=== PATIENT | male | born 1945 | race Caucasian/White ===

== ENCOUNTER 2022-03-04 20:50 | Emergency (ER) | payer OTHER ==
[2022-03-04] MEDS ORDERED: NEO/BAC/POLY/HC OPTH OINT ONE (22:37)
--- NOTE | 2022-03-04 22:48 | ER ---
Nurse's Notes [facility] Name: Mann Lobo Age: 77 yrs Sex: Male : 1945 Arrival Date: 03/04/2022 Time: 20:53 Bed 3 Private MD: Diagnosis: Other acute conjunctivitis Presentation: 03/04 21:09 Chief complaint: Patient states: 0800 this morning I woke up and "had a film over my ld1 right eye." Pt reports trouble seeing in right eye, burning pain.". Coronavirus screen: At this time, the client does not indicate any symptoms associated with coronavirus-19. Ebola Screen: No symptoms or risks identified at this time. Initial Sepsis Screen: Does the patient meet any 2 criteria? No. Patient's initial sepsis screen is negative. Does the patient have a suspected source of infection? No. Patient's initial sepsis screen is negative. Risk Assessment: Do you want to hurt yourself or someone else? Patient reports no desire to harm self or others. Onset of symptoms was March 04, 2022. 21:09 Method Of Arrival: Ambulatory ld1 21:09 Acuity: GULSHAN 3 ld1 Triage Assessment: 21:09 General: Appears in no apparent distress. comfortable, Behavior is calm, cooperative, ld1 appropriate for age. Pain: Complains of pain in right eye Pain does not radiate. Pain currently is 5 out of 10 on a pain scale. Quality of pain is described as burning. EENT: No signs and/or symptoms were reported regarding the EENT system. Neuro: Level of Consciousness is awake, alert, obeys commands, Oriented to person, place, time, situation. Cardiovascular: Capillary refill < 3 seconds Patient's skin is warm and dry. Respiratory: Airway is patent Respiratory effort is even, unlabored. GI: Abdomen is flat, non-distended. : No signs and/or symptoms were reported regarding the genitourinary system. Derm: No signs and/or symptoms reported regarding the dermatologic system. Musculoskeletal: No signs and/or symptoms reported regarding the musculoskeletal system. Historical: - Allergies: 21:06 No Known Allergies; ld1 - Home Meds: 22:11 sertraline 50 mg oral tab 1 tab once daily [Active]; metformin 1,000 mg Oral tab 1 tab kd3 2 times per day [Active]; omeprazole 20 mg Oral cpDR 1 cap once daily [Active]; cholecalciferol (vitamin D3) 50 mcg (2,000 unit) oral cap daily [Active]; primidone 50 mg Oral tab 1 tabs daily [Active]; lisinopril 40 mg Oral tab 1 tab once daily [Active]; tamsulosin 0.4 mg oral cap 1 cap once daily [Active]; tramadol 50 mg Oral tab 1 tab every 6 hours [Active]; lamotrigine 100 mg oral tab 1 tab once daily [Active]; Novolin R Sub-Q [Active]; - PMHx: 21:06 Diabetes mellitus; Hypertensive disorder; Hypercholesterolemia; ld1 - PSHx: 21:06 Tonsillectomy; ld1 - Immunization history:: Adult Immunizations up to date, Client reports receiving the 2nd dose of the Covid vaccine. - Social history:: Smoking status: Patient denies any tobacco usage or history of. Patient uses alcohol, occasionally. Screenin:35 Abuse screen: Denies threats or abuse. Denies injuries from another. Nutritional kd3 screening: No deficits noted. Tuberculosis screening: No symptoms or risk factors identified. Fall Risk None identified. Vital Signs: 21:09 BP 186 / 105; Pulse 57; Resp 18; Temp 98.4(O); Pulse Ox 99% on R/A; Weight 87.09 kg; ld1 Height 6 ft. 0 in. (182.88 cm); Pain 5/10; 22:53 BP 188 / 87; kd3 22:54 Pulse 54; Resp 18; Pulse Ox 99% on R/A; kd3 21:09 Body Mass Index 26.04 (87.09 kg, 182.88 cm) ld1 Visual Acuity: 21:35 Left Eye Visual acuity 20/40, ; Right Eye Visual acuity 20/40, ; Both Eyes Visual kd3 acuity 20/30; With Lenses; ED Course: 20:53 Patient arrived in ED. ja2 20:54 Idalia Woodward FNP-C is PHCP. snw 20:54 Tg Okeefe MD is Attending Physician. snw 21:09 Arm band placed on right wrist. ld1 21:11 Triage completed. ld1 21:16 Jose Campos, LESLEY is Primary Nurse. as6 21:35 Patient has correct armband on for positive identification. kd3 23:01 No provider procedures requiring assistance completed. Patient did not have IV access kd3 during this emergency room visit. Administered Medications: 22:41 Drug: Cortisporin (bacitracin-polymix [id number]) Ointment 1 application kd3 Route: Ophthalmic; Site: right eye; Medication: 21:35 VIS not applicable for this client. kd3 Outcome: 22:48 Discharge ordered by MD. trevizo 23:01 Discharged to home ambulatory. kd3 23:01 Condition: stable 23:01 Discharge instructions given to patient, family, Instructed on discharge instructions, follow up and referral plans. medication usage, Demonstrated understanding of instructions, follow-up care, medications, Prescriptions given X 1. 23:06 Patient left the ED. kd3 Signatures: Idalia Woodward, GENERATION MECHANIC HELPER-C GENERATION MECHANIC HELPER-Csnw Symone Parry, LESLEY RN ld1 Jenanie Bateman Ashby, RN RN as6 Soo Mejia RN RN kd3 Corrections: (The following items were deleted from the chart) 21:12 21:09 Chief complaint: Patient states: 0800 this morning I woke up and "had a film over ld1 my right eye." Pt reports trouble seeing in right eye, burning pain." ld1
--- NOTE | 2022-03-04 22:49 | EDPHYS ---
Physician Documentation [facility] Name: Mann Lobo Age: 77 yrs Sex: Male : 1945 Arrival Date: 03/04/2022 Time: 20:53 Bed 3 Private MD: ED Physician Tg Okeefe HPI: 03/04 21:19 This 77 yrs old Male presents to ER via Ambulatory with complaints of Eye Problem. snw 21:19 The patient is experiencing film over vision of right eye, mild discomfort, mild snw erythema, The patient sustained None. to the right eye, caused by an unknown mechanism. Onset: The symptoms/episode began/occurred suddenly, this morning. Duration: the symptoms are continuous. Associated signs and symptoms: Pertinent positives: None. Severity of symptoms: At their worst the symptoms were mild moderate. The patient has not experienced similar symptoms in the past. The patient has not recently seen a physician, appt at the [facility] tomorrow. Historical: - Allergies: 21:06 No Known Allergies; ld1 - Home Meds: 22:11 sertraline 50 mg oral tab 1 tab once daily [Active]; metformin 1,000 mg Oral tab 1 tab kd3 2 times per day [Active]; omeprazole 20 mg Oral cpDR 1 cap once daily [Active]; cholecalciferol (vitamin D3) 50 mcg (2,000 unit) oral cap daily [Active]; primidone 50 mg Oral tab 1 tabs daily [Active]; lisinopril 40 mg Oral tab 1 tab once daily [Active]; tamsulosin 0.4 mg oral cap 1 cap once daily [Active]; tramadol 50 mg Oral tab 1 tab every 6 hours [Active]; lamotrigine 100 mg oral tab 1 tab once daily [Active]; Novolin R Sub-Q [Active]; - PMHx: 21:06 Diabetes mellitus; Hypertensive disorder; Hypercholesterolemia; ld1 - PSHx: 21:06 Tonsillectomy; ld1 - Immunization history:: Adult Immunizations up to date, Client reports receiving the 2nd dose of the Covid vaccine. - Social history:: Smoking status: Patient denies any tobacco usage or history of. Patient uses alcohol, occasionally. ROS: 21:17 Constitutional: Negative for fever, chills, and weight loss, ENT: Negative for injury, snw pain, and discharge, Neck: Negative for injury, pain, and swelling, Cardiovascular: Negative for chest pain, palpitations, and edema, Respiratory: Negative for shortness of breath, cough, wheezing, and pleuritic chest pain, Abdomen/GI: Negative for abdominal pain, nausea, vomiting, diarrhea, and constipation, Back: Negative for injury and pain, : Negative for injury, bleeding, discharge, and swelling, MS/Extremity: Negative for injury and deformity, Skin: Negative for injury, rash, and discoloration, Neuro: Negative for headache, weakness, numbness, tingling, and seizure, Psych: Negative for depression, anxiety, suicide ideation, homicidal ideation, and hallucinations. 21:17 Eyes: Positive for redness, filmed vision to right eye. Exam: 21:18 Constitutional: This is a well developed, well nourished patient who is awake, alert, snw and in no acute distress. Head/Face: Normocephalic, atraumatic. ENT: Nares patent. No nasal discharge, no septal abnormalities noted. Tympanic membranes are normal and external auditory canals are clear. Oropharynx with no redness, swelling, or masses, exudates, or evidence of obstruction, uvula midline. Mucous membranes moist. Neck: Trachea midline, no thyromegaly or masses palpated, and no cervical lymphadenopathy. Supple, full range of motion without nuchal rigidity, or vertebral point tenderness. No Meningismus. Chest/axilla: Normal chest wall appearance and motion. Nontender with no deformity. No lesions are appreciated. Cardiovascular: Regular rate and rhythm with a normal S1 and S2. No gallops, murmurs, or rubs. Normal PMI, no JVD. No pulse deficits. Respiratory: Lungs have equal breath sounds bilaterally, clear to auscultation and percussion. No rales, rhonchi or wheezes noted. No increased work of breathing, no retractions or nasal flaring. Abdomen/GI: Soft, non-tender, with normal bowel sounds. No distension or tympany. No guarding or rebound. No evidence of tenderness throughout. Back: No spinal tenderness. No costovertebral tenderness. Full range of motion. Skin: Warm, dry with normal turgor. Normal color with no rashes, no lesions, and no evidence of cellulitis. MS/ Extremity: Pulses equal, no cyanosis. Neurovascular intact. Full, normal range of motion. Neuro: Awake and alert, GCS 15, oriented to person, place, time, and situation. Cranial nerves II-XII grossly intact. Motor strength 5/5 in all extremities. Sensory grossly intact. Cerebellar exam normal. Normal gait. Psych: Awake, alert, with orientation to person, place and time. Behavior, mood, and affect are within normal limits. 21:18 Eyes: Periorbital structures: appear normal, Pupils: no acute changes, Extraocular movements: no acute changes, Conjunctiva: injected, in the right eye, Corneas: no acute changes, Sclera: no appreciated abnormality, Anterior chamber: normal, Lids and lashes: appear normal, Visual saab: are intact, Nystagmus: is not appreciated. Vital Signs: 21:09 BP 186 / 105; Pulse 57; Resp 18; Temp 98.4(O); Pulse Ox 99% on R/A; Weight 87.09 kg; ld1 Height 6 ft. 0 in. (182.88 cm); Pain 5/10; 22:53 BP 188 / 87; kd3 22:54 Pulse 54; Resp 18; Pulse Ox 99% on R/A; kd3 21:09 Body Mass Index 26.04 (87.09 kg, 182.88 cm) ld1 Visual Acuity: 21:35 Left Eye Visual acuity 20/40, ; Right Eye Visual acuity 20/40, ; Both Eyes Visual kd3 acuity 20/30; With Lenses; MDM: 21:26 Patient medically screened. snw 22:57 Data reviewed: vital signs, nurses notes. Data interpreted: Pulse oximetry: on room air snw is 99 %. Interpretation: normal. Counseling: I had a detailed discussion with the patient and/or guardian regarding: the historical points, exam findings, and any diagnostic results supporting the discharge/admit diagnosis, the need for outpatient follow up, for definitive care. Response to treatment: the patient's symptoms have markedly improved after treatment. Special discussion: Based on the history and exam findings, there is no indication for further emergent testing or inpatient evaluation. I discussed with the patient/guardian the need to see the opthamologist for further evaluation of the symptoms. 03/04 21:21 Order name: Glucose, Ancillary Testing; Complete Time: 21:25 EDMS 08/08 21:07 Order name: FSBS; Complete Time: 21:20 snw 03/04 21:07 Order name: Visual Acuity; Complete Time: 21:34 snw 03/04 21:26 Order name: Misc. Order: please enter medication list; Complete Time: 22:29 snw 03/04 22:50 Order name: Vital Signs; Complete Time: 22:54 lp1 Administered Medications: 22:41 Drug: Cortisporin (bacitracin-polymix [id number]) Ointment 1 application kd3 Route: Ophthalmic; Site: right eye; Disposition: 03/05 01:30 Co-signature as Attending Physician, Tg Okeefe MD STAFF ATTESTATION STATEMENT I sd2 was immediately available on-site in the Emergency Department for consultation in the care of the patient. Tg Okeefe MD. Disposition Summary: 03/04/22 22:48 Discharge Ordered Location: Home snw Condition: Stable snw Diagnosis - Other acute conjunctivitis snw Followup: snw - With: Emergency Department - When: As needed - Reason: Worsening of condition Followup: snw - With: Private Physician - When: 2 - 3 days - Reason: Recheck today's complaints, Continuance of care, Re-evaluation by your physician Discharge Instructions: - Discharge Summary Sheet snw - Viral Conjunctivitis, Adult snw Forms: - Medication Reconciliation Form snw - Thank You Letter snw - Antibiotic Education snw - Prescription Opioid Use snw Prescriptions: - Vigamox 0.5 % Ophthalmic Drops - instill 1 drop by OPHTHALMIC route every 8 hours for 7 days; 5 milliliter; snw Refills: 0, Product Selection Permitted Signatures: Idalia Woodward FNP-Keely STONE DRILLER-Csnw Maci Armstrong, RN RN lp1 Symone Parry, RN RN ld1 Soo Mejia RN RN kd3 Tg Okeefe MD MD sd2
[2022-03-05 03:43] VITALS: TEMP 98.4; O2SAT 99
[2022-03-05 03:45] VITALS: BP 188/87
== END 2022-03-04 23:06 | disposition home or self-care (01) ==
LOC: ER 20:50
DX: H10.31 Unspecified acute conjunctivitis, right eye (principal); E11.9 Type 2 diabetes mellitus without complications; Z79.4 Long term (current) use of insulin; I10 Essential (primary) hypertension
CPT/HCPCS: 82947; 99283